=== PATIENT | female | born 1980 | race Caucasian/White ===

== ENCOUNTER 2025-07-09 15:39 | Emergency (ER) | payer SELFPAY ==
--- OUTSIDE RECORDS SUMMARY | 2025-07-09 15:43 | XMS_ITS | Clinical Summary ---
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
[2025-07-09 15:50] VITALS: BP 113/78; PULSE 73; RESP 16; TEMP 36.8; O2SAT 98
--- NOTE | 2025-07-09 16:11 | ED_ITS ---
HPI - Skin/Abscess/Foreign Bdy General Chief complaint: Skin/Abscess/Foreign Body Stated complaint: prescription for scabies Time Seen by Provider: 07/09/25 16:07 Source: patient and RN notes reviewed Mode of arrival: ambulatory Limitations: no limitations History of Present Illness HPI narrative: Patient presents today requesting prescription for permethrin lotion for scabies. She had a scabies exposure a few weeks ago at work, subsequently sought treatment here at [facility]. She was unable to pear picker the prescription a pharmacy due to insurance issues. Then she got COVID and has since recuperated. The prescription has . She is here requesting an additional prescription as she is still itching. States she resolved her insurance issue Related Data Allergies Allergy/AdvReac Type Severity Reaction Status Date / Time No Known Allergies Allergy Verified 07/09/25 15:55 PMFSH Comments At time of signature, I have reviewed and agree with nursing past medical, surgical, social and family history unless otherwise noted. Please see nursing chart for further information. There is no relevant family history pertinent to the presenting complaint Exam Narrative: GENERAL: Well-appearing, well-nourished, and in no acute distress. HEAD: Normocephalic, atraumatic. EYES: EOMI. No redness or drainage. Conjunctivae normal. ENT: Mucous membranes pink and moist. NECK: Normal AROM. CHEST: No respiratory distress. EXTREMITIES: Normal range of motion. No edema. SKIN: Warm, dry. Capillary refill normal. Normal skin turgor. Few scattered erythematous papules to the dorsums of the hands and inner aspects of the ankles. NEURO: No focal deficits. Alert and oriented x3. Gait steady. PSYCH: Normal affect. No signs of depression or anxiety. Course Course Level of Care: Express Care Visit Vital Signs Vital signs: Vital Signs Temperature 98.2 F 07/09/25 15:50 Pulse Rate 73 07/09/25 15:50 Respiratory Rate 16 07/09/25 15:50 Blood Pressure 113/78 07/09/25 15:50 Pulse Oximetry 98 07/09/25 15:50 Oxygen Delivery Room Air 07/09/25 15:50 Temperature 98.2 F 07/09/25 15:50 Pulse Rate 73 07/09/25 15:50 Respiratory Rate 16 07/09/25 15:50 Blood Pressure 113/78 07/09/25 15:50 Pulse Oximetry 98 07/09/25 15:50 Oxygen Delivery Room Air 07/09/25 15:50 Reviewed MDM - Skin/Abscess/Foreign Bdy MDM Narrative Medical decision making narrative: 44-year-old female patient presents today requesting prescription permethrin due to scabies exposure a few weeks ago while at work. She was unable to get the 1st prescription filled due to insurance issues and states she has resolved. Exam shows few erythematous papules on her hands and ankles are very pruritic. Prescription for permethrin sent to pharmacy. Vital signs stable. Anticipatory guidance given. Differential Diagnosis Differential diagnosis: Likely abscess of skin or subcutaneous tissue, viral exanthem, dermatophytosis, urticaria, cellulitis, eczema, insect bites, impetigo, contact dermatitis and other (Scabies) Critical Care Time Critical Care Time Critical Care Time: No Discharge Plan Discharge Clinical Impression: Scabies exposure Patient Disposition: Home Condition: Stable Instructions: Scabies (ED) Additional Instructions: Please use the permethrin as prescribed. You may still have itching for up to 2 weeks after using the lotion. Taking antihistamine for itching such as Zyrtec, Claritin, or Ruby. Patient Language: Bel[place]ian Prescriptions: New permethrin 5 % cream 1 applic TOPICAL ONCE Qty: 60 0RF Rx Instructions: leave on for 8 to 14 hrs before washing off Follow-up/Referrals: PHYSICIAN,COMPUTER ANALYST [Primary Care Provider] - Time of Disposition: 16:17
== END 2025-07-09 16:21 | disposition home or self-care (01) ==
PROVIDERS: Emergency Provider Nurse Practitioner
DX: Z20.7 Contact with and (suspected) exposure to pediculosis, acariasis and other infestations (principal)
CPT/HCPCS: 99203; G0463